=== PATIENT | male | born 2000 | race Caucasian/White ===

== ENCOUNTER 2025-03-09 08:41 | Emergency (ER) | payer SELFPAY ==
--- NOTE | 2025-03-09 08:43 | PC.NURSE ---
FSBS 128
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
[2025-03-09 08:49] VITALS: BP 152/101; PULSE 99; RESP 25; O2SAT 100
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
[2025-03-09 08:58] LABS: Hematocrit 43.6 % (42.0-52.0); Hemoglobin 15.2 g/dL (14.1-18.0); Immature Granulocytes % 0.8 %; Mean Corpuscular HGB Conc 34.9 g/dL (31.8-35.4); Mean Corpuscular Hemoglobin 30.6 pg (27.0-31.2); Mean Corpuscular Volume 87.7 fl (80-94); Nucleated Red Blood Cells % 0 %; Platelet Count 334 K/mm3 (142-424); Red Blood Count 4.97 M/mm3 (4.60-6.20); Red Cell Distribution Width-SD 37.6 fL; White Blood Count 11.8 K/mm3 (4.8-10.8)
[2025-03-09 09:07] LABS: Activated Partial Thrombo Time 22.1 seconds (22.8-30.6); INR 1.02 (0.9-1.1); Prothrombin Time 11.2 seconds (10.1-12.5)
[2025-03-09] MEDS: SODIUM CHLORIDE 0.9% 10ML SYR (RAD ONLY) 10 ML IV (09:10)
[2025-03-09] MEDS: 0.9 % SODIUM CHLORIDE 50 ML VIAL 40 ML IV ×2 (09:11→09:13)
[2025-03-09] MEDS: IOPAMIDOL-370 (76%);100ML BOTTLE 100 ML IV (09:13)
[2025-03-09] MEDS: IOPAMIDOL-370 (76%);100ML BOTTLE 60 ML IV (09:14)
--- OUTSIDE RECORDS SUMMARY | 2025-03-09 09:16 | XMS_ITS | Clinical Summary ---
Author Organization [facility] Address [address] [place] [address] Phone Care Team Providers Care Senior Office Assistant Name Role Phone Gurwinder Mendoza MD Primary Care Provider Allergies No known active allergies Medications diclofenac (VOLTAREN) 75 mg Oral Tablet, Delayed Release (E.C.) TK 1 T PO BID 01/16/2020 Active dicyclomine (BENTYL) 10 mg Oral CapsuleIndicati ons:Abdominal cramping Take 1 Capsule by mouth 4 times daily as needed (stomach cramping). 30 Capsule 04/06/2023 Active Active Problems Problem Noted Date Diagnosed Date AR (allergic rhinitis) 03/24/2011 Immunizations Immunization Administration Dates Next Due DTaP 12/13/2003, 1,07/02/2000,1999,1999 Hepatitis B, Unspecified Formulation 11/15/2000, 03/25/2000,1999 HiB, Unspecified Formulation 10/19/2000,03/25/20 00,1999 IPV 12/13/2003, 1,03/25/2000,1999 MMR 12/13/2003,02/11/2001 Meningococcal Conjugate 04/13/2011 Tdap 04/13/2011 Varicella 04/13/2011,11/15/2000 Social History Tobacco Use Types Packs/Day Years Used Date Smoking Tobacco: Never Smokeless Tobacco: Never Alcohol Use Standard Drinks/Week Comments Never 0 (1 standard drink = 0.6 oz pur e alcohol) AUDIT-C Answer Date Recorded Frequency of Alcohol Consumption Never 11/21/2019 Average Number of Drinks Not on file 020 Frequency of Binge Drinking Not on file 11/2019 PHQ-2 Answer Date Recorded PHQ-2 Total Score 0 04/06/2023 Sex and Gender Information Value Date Recorded Sex Assigned at Not on file Legal Sex Male 4:47 AM EDT Gender Identity Not on file Sexual Orientation Not on file Obstetrics History Last Filed Vital Signs Vital Sign Reading Time Taken Comments Blood Pressure 122/90 01/25/2020 1:49 PM EDT Pulse 80 01/25/2020 1:49 PM EDT Temperature 36.7 C (98.1 F) 01/25/2020 1:49 PM EDT Respiratory Rate 16 01/25/2020 1:49 PM EDT Oxygen Saturation 99% 01/25/2020 1:49 PM EDT Inhaled Oxygen Concentration - - Weight 101.6 kg (224 lb) 01/25/2020 1:49 PM EDT Height 185.4 cm (6' 1 ) 01/25/2020 1:49 PM EDT Body Mass Index 29.55 01/25/2020 1:49 PM EDT Plan of Treatment Health Maintenance Due Date Last Done Comments Annual Wellness Exam 10/14/2002 HPV (1 - Male 3-dose series) 10/14/2014 DTaP/TDaP/Td (7 - Td or Tdap) 04/13/2021 04/13/2011, 12/13/2003, 02/11/2001, Additional history exists COVID-19 Vaccine ( season) 2024 Influenza Vaccine (#1) 2025 Hepatitis B Vaccine Completed 11/15/2000, 10/19/2000, 03/25/2000, Additional history exists Meningococcal B Vaccine Aged Out No l onger eligible based on patient's age to complete this topic Pneumococcal Vaccine 0-49 Aged Out No longer eligible based on patient's age to complete this topic Goals Goal Patient Goal Type Associated Problems Recent Progress Patient-Stated? Author Maintain a healthy diet, exercise regularly and maintain an ideal body weight General No Migue, Tanya, RMA Insurance [employer] PPO Care Teams Senior Office Assistant Relationship Specialty Start Date End Date Gurwinder Mendoza MD [address] [place] [address] PCP - General Family Medicine 04/06/23
--- OUTSIDE RECORDS SUMMARY | 2025-03-09 09:16 | XMS_ITS | Clinical Summary ---
Author Organization [facility] Address [address] [place] [id number] Phone [email or web address] Care Team Providers Care Practical Nurse Clinical Coordinator Name Role Phone Provider, No Primary Care Provider Unavailabl e Allergies No known active allergies Medications No known medications Active Problems No known active problems Immunizations Immunization Administration Dates Next Due Hep B, unspecified (CVX-45) 11/15/2000, 0,1999 Hib, unspecified (CVX-17) 10/19/2000,03/25/2000, 1999 IPV (IPOL) (CVX-10) 12/13/2003, 1,03/25/2000,12/22 MMR (M-M-R-II,PRIORIX) (TWO VIALS-MUST MIX) (CVX-03) 12/13/2003,02/11/2001 Meningococcal (Menactra) MCV 4P (CVX-114) 04/13/2011 Tdap (ADACEL BOOSTRIX) (CVX-115) 04/13/2011 Varicella (VARIVAX) (TWO VIA LS-MUST MIX) (CVX-21) 04/13/2011,11/15/2000 Social History Tobacco Use Types Packs/Day Years Used Date Smoking Tobacco: Never Smokeless Tobacco: Never Intimate Partner Violence Answer Date R ecorded Insults You Not on file 10/31/2020 Threatens You Not on file 10/31/2020 Screams at You Not on file 10/31/2020 Physically Hurt Not on file 10/31/2020 Intimate Partner Violence Score Not on file 10/31/2020 Stress Answer Date Recorded Stress in your Life Not on file 05/24/2024 Dealing with Stress 3 05/24/2024 Sex and Gender Information Value Date Recorded Sex Assigned at Not on file Legal Sex Male 3:56 PM CDT Gender Identity Not on file Sexual Orientation Not on file Last Filed Vital Signs Vital Sign Reading Time Taken Comments Blood Pressure 129/79 01/27/2021 5:31 PM EDT Pulse 100 01/27/2021 5:31 PM EDT Temperature 36.4 C (97.5 F) 01/27/2021 5:31 PM EDT Respiratory Rate 18 01/27/2021 5:31 PM EDT Oxygen Saturation 99% 01/27/2021 5:31 PM EDT Inhaled Oxygen Concentration - - Weight 106 kg (234 lb) 11/04/2020 2:28 PM EDT Height 182.9 cm (6') 11/04/2020 2:28 PM EDT Body Mass Index 31.74 11/04/2020 2:28 PM EDT Plan of Treatment Health Maintenance Due Date Last Done Comments Dental Cleaning/Exam 1999 HIV Screening 1999 Hepatitis C Screening 1999 HPV Immunization (1 - Male 3-dose series) 10/14/2014 Hep B Infection Screening - Triple Screen 10/14/2017 Tetanus Diphtheria and Pertussis Immunization (2 - Td or Tdap) 04/13/2021 04/13/2011 Annual Preventive Exam 11/04/2021 11/04/2020 Covid-19 Immunization (1 - season) 2024 Influenza Immunization (#1) 2025 HIB Immunization Completed 10/19/2000, 01/2000, 1999 Hepatitis B Immunization Completed 001, 03/25/2000, 1999 Polio Immunization Completed 12/13/2003, 0 10/19/2000, 03/25/2000, Additional history exists Meningococcal Immunization Aged Out 04/13/2011 N o longer eligible based on patient's age to complete this topic Varicella Immunization Completed 04/13/2011, 2000 Hepatitis A Immunization Aged Out No longer eligible based on patient's age to complete this topic Men B Immunization Aged Out No longer eligible based on patient's age to complete this topic Pneumococcal: Ped (0 to 5 Yrs) and At-Risk Member (6 to 64 Yrs) Aged Out No longer eligible based on patient's age to complete this topic Insurance OPT OUT NO COPAY NB Care Teams Practical Nurse Clinical Coordinator Relationship Specialty Start Date End Date Provider, [place] [address] PCP - General Veterinary Parasitologist 01/27/21
--- OUTSIDE RECORDS SUMMARY | 2025-03-09 09:16 | XMS_ITS | Clinical Summary ---
Author Organization [facility] Address [address], [address] [place] [address] Care Team Providers Care Puller Through Name Role Phone Unavailable Primary Care Provider Unavailabl e Allergies No known active allergies Medications ibuprofen (ADVIL;MOTRIN) 600 MG tablet Take 1 tablet by mouth every 6 hours as needed for Pain 28 tablet 01/25/2021 Active naproxen (NAPROSYN) 250 MG tablet Take 1 tablet by mouth 2 times daily (with meals) 20 tablet 1 12/11/2021 Active Social History Tobacco Use Types Packs/Day Years Used Date Smoking Tobacco: Never Smokeless Tobacco: Never Alcohol Use Standard Drinks/Week Comments Never 0 (1 standard drink = 0.6 oz pur e alcohol) Sex and Gender Information Value Date Recorded Sex Assigned at Not on file Legal Sex Male 4:59 PM EDT Gender Identity Not on file Sexual Orientation Not on file Last Filed Vital Signs Vital Sign Reading Time Taken Comments Blood Pressure 126/76 01/25/2021 7:22 PM EDT Pulse 63 12/11/2021 2:03 PM EDT Temperature 36.1 C (97 F) 12/11/2021 2:03 PM EDT Respiratory Rate 16 12/11/2021 2:03 PM EDT Oxygen Saturation 99% 12/11/2021 2:03 PM EDT Inhaled Oxygen Concentration - - Weight 108.9 kg (240 lb) 01/25/2021 6:06 PM EDT Height 185.4 cm (6' 1 ) 01/25/2021 6:06 PM EDT Body Mass Index 31.66 01/25/2021 6:06 PM EDT Plan of Treatment Not on file Insurance [facility]
[2025-03-09 09:35] VITALS: BMI 34.2
--- NOTE | 2025-03-09 09:44 | ECG_ITS ---
APPROVED REPORT Exam: Resting ECG HR:102 bpm ECG Measurements Heart Rate 102 AXES FL 152 P 48 QRSd 105 QRS -10 QT 345 T 61 QTc 404 Conclusion SINUS TACHYCARDIA INCOMPLETE RIGHT BUNDLE BRANCH BLOCK [90+ ms QRS DURATION, TERMINAL R IN V1/V2, 40+ ms S IN I/aVL/V4/V5/V6] NONSPECIFIC T-WAVE ABNORMALITY No STEMI Electronically signed by : JEFFERY LAWRENCE, 03/10/2025 07:48:09
[2025-03-09 10:00] VITALS: BP 130/82; RESP 19
[2025-03-09 10:03] LABS: Albumin Level 4.0 g/dl (3.5-5.0); Chloride 104 mmol/L (98-107); Potassium 3.3 mmoL/L (3.5-5.1); Sodium 136 mmol/L (136-145)
[2025-03-09 10:06] LABS: Alanine Aminotransferase 59 U/L (12-78); Albumin/Globulin Ratio 1.9 (1.1-1.8); Alkaline Phosphatase 69 U/L (38-126); Anion Gap 12.3 mEq/L (5-15); Aspartate Amino Transferase 45 U/L (17-59); Bilirubin,Total 1.1 mg/dl (0.2-1.3); Blood Urea Nitrogen 8 mg/dl (9-20); Calcium 8.9 mg/dl (8.4-10.2); Carbon Dioxide 23 mmol/L (22.0-30.0); Creatinine Clearance Estimated 235 mL/min (50-200); Creatinine,Serum 0.80 mg/dl (0.66-1.25); Estimated Glomerular Filt Rate 118 ml/min (>60); GFR (African American) 143 ML/MIN (>60); Globulin 2.1 g/dL (1.3-3.2); Glucose 109 mg/dl (74-100); Total Protein,Serum 6.1 g/dl (6.3-8.2)
[2025-03-09 10:10] LABS: RBC Morphology Normal; Total Cells Counted 100
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
[2025-03-09 10:20] LABS: Troponin I < 0.01 ng/ml (0.00-0.034)
[2025-03-09] MEDS: MORPHINE 4MG/ML SYRINGE 4 MG IV (10:24)
[2025-03-09 10:30] VITALS: BP 121/74; RESP 22
[2025-03-09 10:55] LABS: Creatine Kinase 141 U/L (55-170)
[2025-03-09 11:00] VITALS: RESP 24
[2025-03-09] MEDS: ONDANSETRON 4MG/2ML VIAL 4 MG IV (11:04)
[2025-03-09] MEDS: TET/DIPHTH/PERT-ADULT 0.5ML SYRINGE 0.5 ML IM (11:16)
[2025-03-09 11:32] LABS: Microscopic, Urine URINE MICROSCOPIC (MICROSCOPIC)
[2025-03-09 11:34] LABS: Bilirubin,Urine Negative (Negative); Color,Urine YELLOW (Yellow); Glucose,Urine (UA) Negative (Negative); Ketones,Urine Negative (Negative); Leukocyte Esterase,Urine Negative (Negative); PH,Urine 6.0 (5.0-8.5); Protein,Urine Negative (Negative); Specific Gravity, Urine 1.015 (1.005-1.030); Urobilinogen,Urine 0.2 EU/dl (0.2)
[2025-03-09 11:46] LABS: Benzodiazepines Screen,Urine Negative ng/ml (<200)
[2025-03-09 11:47] LABS: Amphetamine/Metha Screen,Urine Negative ng/ml (<1000); Barbiturates Screen,Urine Negative ng/ml (<200)
[2025-03-09 11:49] LABS: Methadone Screen,Urine Negative ng/ml (<300)
[2025-03-09 11:50] LABS: Opiate Screen,Urine Positive ng/ml (<300)
[2025-03-09 11:51] LABS: Bacteria,Urine Trace /lpf; Phencyclidine Screen,Urine Negative ng/ml (<25); Squamous Epithelial Cell,Urine Occasional #/hpf (0-5); WBC,Urine Occasional #/hpf (0-3)
[2025-03-09 12:08] VITALS: BP 125/76; PULSE 94; O2SAT 100
--- NOTE | 2025-03-09 12:15 | PC.NURSE ---
called for food tray for pt
--- NOTE | 2025-03-09 12:16 | PC.NURSE ---
Patients FSBS is 172
[2025-03-09 12:38] VITALS: BP 125/78; PULSE 68; RESP 17; TEMP 36.7; O2SAT 99
== END 2025-03-09 12:41 | disposition home or self-care (01) ==
PROVIDERS: Emergency Provider Student in an Organized Health Care Education/Training Program
DX: S50.312A Abrasion of left elbow, initial encounter (principal); M79.605 Pain in left leg; V44.5XXA Car driver injured in collision with heavy transport vehicle or bus in traffic accident, initial encounter; Y92.410 Unspecified street and highway as the place of occurrence of the external cause
CPT/HCPCS: 70450; 70496; 70498; 71045; 71275; 72125; 72128; 72131; 72170; 73502; 73552; 73560; 73590; 74174; 80053; 80307; 81001; 82550; 84484; 85007; 85025; 85027; 85610; 85730; 90471; 90715; 93005; 96374; 96375; 99285; G0390; J2270; J2405; Q9967